=== PATIENT | female | born 1955 | race Caucasian/White ===

== ENCOUNTER 2019-06-10 19:39 | Emergency (ER) | payer BC ==
[~2019-06-10] VITALS: Ht 167.6 cm; Wt 74.5 kg
[~2019-06-10 19:39] MED LIST: ELIM TOP; GABA400C14 PO; HYDR50TA15 PO; LEVO75TA65; PRED20TA PO; TRIA15OI9 TOP
[2019-06-10 19:42] VITALS: BP 126/66; PULSE 103; RESP 18; Ht 167.6 cm; Wt 74.5 kg
--- NOTE | 2019-06-10 20:34 | ERD ---
ER Documentation Chief Complaint Chief Complaint bitten by mites on all limbs today HPI 63-year-old female, presents to the emergency department, complaining of multiple insect bites, that according to the patient are mites. The patient was seen by her doctor yesterday and started on Keflex and topical hydrocortisone without improvement of the symptoms. She denies fever or chills, no shortness of breath, no abdominal pain. ROS All systems reviewed and are negative except as per history of present illness. Medications Home Meds Active Scripts Triamcinolone Acetonide (Triamcinolone Acetonide) 0.5% - 15 Gm Oint..gm., 1 APPLIC TOP BID for 5 Days, #1 TUB Prov:SERGIO WAGGONER MD 06/10/19 Hydroxyzine Hcl* (Hydroxyzine Hcl*) 50 Mg Tablet, 50 MG PO QHS PRN for ITCHING for 10 Days, #10 TAB Prov:SERGIO WAGGONER MD 06/10/19 Prednisone* (Prednisone*) 20 Mg Tab, 20 MG PO DAILY for 5 Days, TAB Prov:SERGIO WAGGONER MD 06/10/19 Permethrin* (Elimite*) 5% Cr, 1 APPLIC TOP ONCE, #1 TUB Prov:SERGIO WAGGONER MD 06/10/19 Gabapentin* (Gabapentin*) 400 Mg Capsule, 400 MG PO TID for 30 Days, #90 CAP Prov:CLIFF DOTSON MD 11/28/18 Reported Medications Levothyroxine Sodium* (Levoxyl*) 75 Mcg Tablet 07/03/10 Allergies Allergies: Coded Allergies: hydrocodone (Verified Adverse Reaction, Intermediate, 11/26/18) patient states she is no longer allergic for hydrocodone Uncoded Allergies: bitartrate (Allergy, Intermediate, rashes, 11/25/18) PMhx/Soc History of Surgery: Yes (lt radius repair, c/s, lt mastectomy) Anesthesia Reaction: No Hx Neurological Disorder: No Hx Respiratory Disorders: No Hx Cardiac Disorders: No Hx Psychiatric Problems: No Hx Miscellaneous Medical Probl: No Hx Alcohol Use: No Hx Substance Use: No Hx Tobacco Use: No Smoking Status: Never smoker FmHx Family History: No diabetes, No coronary disease Physical Exam Vitals Vital Signs Date Temp Pulse Resp B/P (MAP) Pulse Ox O2 O2 Flow FiO2 Time Delivery Rate 06/10/19 98.9 103 18 126/66 98 19:42 (86) Physical Exam Const: No acute distress Head: Atraumatic Eyes: Normal Conjunctiva ENT: Normal External Ears, Nose and Mouth. Neck: Full range of motion. No meningismus. Resp: Clear to auscultation bilaterally Cardio: Regular rate and rhythm, no murmurs Abd: Soft, non tender, non distended. Normal bowel sounds Skin: Multiple erythematous maculopapular lesions predominantly in extremities. Back: No midline or flank tenderness Ext: No cyanosis, or edema Neur: Awake and alert Psych: Normal Mood and Affect Procedures/MDM Vital signs stable, Differential diagnosis include but not limited to: Dermatitis, scabies, allergic reaction, cellulitis, erysipelas, shingles, abscess. Low suspicion for acute systemic infectious process. Physical examination and clinical presentation consistent most likely with insect bites without evidence of cellulitis or abscess formation. During the ED course the patient remained stable, no new complaints. Clinical impression discussed with mother who agrees with management. The patient is stable to be treated outpatient and will be discharged home. The patient was instructed to follow up with the primary care provider in the next 48h. If symptoms persist, worsen or new symptoms develop, then patient should return to the ED immediately. Instructions explained and given directly by me to the patient and relatives with acknowledgment and demonstrated understanding. Disclaimer: Inadvertent spelling and grammatical errors are likely due to EHR/dictation software use and do not reflect on the overall quality of patient care. Also, please note that the electronic time recorded on this note does not necessarily reflect the actual time of the patient encounter. Departure Diagnosis: Primary Impression: Insect bites Condition: Stable Additional Instructions: Thank you very much for allowing us to participate in your care. Your health and safety is our top priority at [facility]. The evaluation in the emergency department has been done to rule out an acute emergency. Chronic, [id number] conditions may have not been evaluated; therefore, you need to follow up with a primary care provider in the next 48h. If symptoms persist, worsen or new symptoms develop, then patient should return to the ED immediately. Call your primary care doctor TOMORROW for an appointment during the next 2-4 days and bring all the information provided. Have prescriptions filled and follow precisely the directions on the label. If the symptoms get worse and your provider is unavailable, return to the [facility] Department immediately. SERGIO WAGGONER MD Jun 10, 2019 20:34
== END 2019-06-10 21:03 | disposition home or self-care (01) ==
LOC: FTE 19:39
DX: S60.561A Insect bite (nonvenomous) of right hand, initial encounter (principal); S60.562A Insect bite (nonvenomous) of left hand, initial encounter; S80.861A Insect bite (nonvenomous), right lower leg, initial encounter; S80.862A Insect bite (nonvenomous), left lower leg, initial encounter; W57.XXXA Bitten or stung by nonvenomous insect and other nonvenomous arthropods, initial encounter; Y92.9 Unspecified place or not applicable
CPT/HCPCS: 99283